=== PATIENT | female | born 1990 | race Caucasian/White ===

== ENCOUNTER 2018-10-17 10:59 | Emergency (ER) | payer BC ==
--- NOTE | 2018-10-17 11:53 | EDPHY ---
H & P Time Seen by Provider: 10/17/18 11:28 HPI/ROS: CHIEF COMPLAINT: Multiple injuries after fall off a horse yesterday HISTORY OF PRESENT ILLNESS: 27-year-old woman had her horse run off on her at 10:00 a.m. Yesterday and the 2nd time she fell off the horse down the right side into a thistle silver. No loss of consciousness, no helmet. She had a headache yesterday but today headache is gone. She has a little discomfort on her scalp where she bruised herself. Today she started having neck pain worse with rotation of her neck but not really affected by flexion or extension. Not associated with weakness or numbness in any extremity or fever or chills. She also has pain in her right middle finger and left ankle. Nausea and blurry vision yesterday which are better today. No vomiting. No double vision today. No vertigo and not off balance. REVIEW OF SYSTEMS: Eye: no change in vision ENT: No hearing loss, mild sore throat Cardiac: no chest pain or syncope Pulmonary: no cough or SOB Abdomen: no vomiting, diarrhea, abdominal pain Musculoskeletal: HPI Skin: Scratches on her back Neuro: HPI Constitutional: no fever : No hematuria A comprehensive 10 point review of systems is otherwise negative aside from elements mentioned in the history of present illness. PAST MEDICAL HISTORY: Negative except for concussion 10 years ago Social history: Nonsmoker General Appearance: Alert and conversant, cooperative. Eyes: No scleral icterus. Pupils equal reactive extraocular motion intact. ENT, Mouth: Normal mucous membranes. No hemotympanum. No bruising around the eyes or behind the ear. Respiratory: Normal respiratory effort, breath sounds equal, lungs are clear to auscultation. Cardiovascular: Regular rate and rhythm. Gastrointestinal: Abdomen is soft and non tender. Neurological: Alert, face symmetric, normal motor and sensory in extremities. Fluent speech and ambulatory, not ataxic. Skin: Scratches on the back more on the left than the right. No skin laceration over the left ankle or the right middle finger. Musculoskeletal: No midline cervical thoracic or lumbar spine tenderness to palpation. She does have tenderness to palpation in both trapezius muscles laterally on the left and right side of the neck. The right middle finger is swollen but no rotation on flexion. She has tenderness palpation over the tarsal navicular on the left foot but no medial or lateral malleolar tenderness , no 5th metatarsal tenderness, no proximal tib-fib tenderness. Normal motor sensory and dorsalis pedis in the left foot. Psychiatric: Not agitated. Emergency Department course/MDM: Does not have red flags to suggest she is at high risk for intracranial hemorrhage or skull fracture. Subdural and epidural or traumatic ICH I think are unlikely. Cervical spine cleared clinically by nexus. X-ray of the right middle finger and left ankle. Results of the x-rays discussed with the patient. Symptomatic treatment and primary care follow-up. Smoking Status: Never smoked Constitutional: Initial Vital Signs Temperature (C) 36.8 C 10/17/18 11:05 Heart Rate 84 10/17/18 11:05 Respiratory Rate 16 10/17/18 11:05 Blood Pressure 154/97 H 10/17/18 11:05 O2 Sat (%) 97 10/17/18 11:05 O2 Delivery Mode Room Air Medical Decision Making - Diagnostics Imaging Results: Imaging Impressions Ankle X-Ray 10/17/18 11:49 Impression: No evidence for acute osseous abnormality left ankle. Finger X-Ray 10/17/18 11:49 Impression: No evidence for acute osseous abnormality right third finger. Imaging: Discussed imaging studies w/ time broker Radiologist Differential Diagnosis: Differential diagnosis considered for head injury including but not limited to concussion, skull fracture, intraparenchymal contusion, subarachnoid, subdural and epidural hematoma. Departure - Departure Disposition: Home, Routine, Self-Care Clinical Impression: Concussion Qualifiers: Encounter type: initial encounter Loss of consciousness presence/duration: without LOC Qualified Code(s): S06.0X0A - Concussion without loss of consciousness, initial encounter Neck muscle strain Qualifiers: Encounter type: initial encounter Qualified Code(s): S16.1XXA - Strain of muscle, fascia and tendon at neck level, initial encounter Ankle sprain Qualifiers: Encounter type: initial encounter Involved ligament of ankle: unspecified ligament Laterality: left Qualified Code(s): S93.402A - Sprain of unspecified ligament of left ankle, initial encounter Finger contusion Qualifiers: Encounter type: initial encounter Finger: middle finger Damage to nail status: without damage Laterality: right Qualified Code(s): S60.031A - Contusion of right middle finger without damage to nail, initial encounter Condition: Good Instructions: Cervical Strain (ED), Concussion (ED) Referrals: Goshen,Anamika A, MD [Medical Doctor] - As per Instructions Gutierrez Cramer DO [Doctor of Osteopathy] - As per Instructions Stand Alone Forms: Work Excuse
--- NOTE | 2018-10-17 12:03 | ASMTCAGE ---
CAGE Do you feel you ought to Answers: No cut down on your drinking or drug use? Additional Comments Patient admits to rare drinking of more than 3 drinks socially. No indication of abuse Date Signed: 10/17/2018 12:02 PM Electronically Signed By:Precious Evans RN
[2018-10-17 12:42] VITALS: BP 139/81
== END 2018-10-17 12:42 | disposition home or self-care (01) ==
DX: S06.0X0A Concussion without loss of consciousness, initial encounter (principal); S16.1XXA Strain of muscle, fascia and tendon at neck level, initial encounter; S93.402A Sprain of unspecified ligament of left ankle, initial encounter; V80.010A Animal-rider injured by fall from or being thrown from horse in noncollision accident, initial encounter; Y92.828 Other wilderness area as the place of occurrence of the external cause; Y93.52 Activity, horseback riding
CPT/HCPCS: L3925